=== PATIENT | female | born 1965 | race Caucasian/White ===

== ENCOUNTER 2024-12-19 10:31 | Emergency (ER) | payer BC, SELFPAY ==
[2024-12-19 10:40] VITALS: BP 163/100
--- NOTE | 2024-12-19 13:47 | ED.GENMED ---
History of Present Illness
General
Chief Complaint: Musculo-Skeletal Complaint
Source: patient
Exam Limitations: none
Time Seen by Provider: 12/19/24 12:06
Nursing documentation reviewed up to this point in time: agreed with
History of Present Illness
History of Present Illness:
see MDM
Past History
Past History
ED Past Medical History: CVA (tia) and HTN
ED Past Surgical History: Cholecystectomy
Social History
Tobacco: Non-smoker
Review of Systems
Review of Systems
Allergies reviewed?: Yes
All Other Systems: Not applicable
Phy Exam
Physical Exam
Physical Exam:
GENERAL: Alert , in no apparent distress
CARDIAC: Regular rate and rhythm .
LUNGS: Clear breath sounds bilaterally, no acute respiratory distress, no wheezes/rales/rhonchi
NEUROLOGICAL: Alert and oriented, no focal neuro deficits
SKIN: Warm and dry, skin intact.
MUSCULOSKELETAL media tibial tenderness L knee; no effusion; midline incision well healed; no erythema, no warmth; pain with flexion to 25 degrees; ligaments stable
calf soft and nontender, full ROM ;
PSYCH: Normal and appropriate interaction.
Course
Orders/Labs/Results
Orders:
Orders
12/19/24 10:53
Knee, Left 4 or More Views [CR Knee - Left 4 Or More View*] Urgent
Comment:
Reason For Exam: pain no injury
Vital Signs
Initial and Last Documented VS:
Initial Vital Signs
Temp Pulse Resp BP
36.4 C 75 18 163/100
12/19/24 10:40 12/19/24 10:40 12/19/24 10:40 12/19/24 10:40
Last Documented Vital Signs
Temp Pulse Resp BP Pulse Ox
36.9 C 66 20 158/92 99
12/19/24 14:11 12/19/24 14:13 12/19/24 14:11 12/19/24 14:13 12/19/24 14:13
MDM/Problems Addressed
Differential Diagnosis Includes:
see MDM
MDM/Problems Addressed:
Note:
CHIEF COMPLAINT(S)
Right knee pain.
HISTORY OF PRESENT ILLNESS
The patient is a 59-year-old female with a history of hyperparapthyroidism and prior patellar fractures and surgeries in June 2023 and July 2024, presenting with new-onset right knee pain. The pain began one week ago initially feeling like
she had 'slept wrong.' The pain intensified throughout the day and worsened by nighttime. The patient denies any recent falls. She reports that weight-bearing exacerbates the pain. The patient noted increased heaviness in the affected leg and
difficulty getting comfortable at night. There was a recent physical therapy visit, after which the pain continued, prompting a recommendation for emergency evaluation. The patient underwent an X-ray today, which showed previous fracture sites with
no new fracture identified yet. She has a known history of hyperparathyroidism, which could predispose her to fractures. Pain relief measures have not been requested at this time.
ADDITIONAL HISTORY OBTAINED FROM SOURCES OTHER THAN THE PATIENT
According to radiology, the initial X-ray shows hardware in place without evidence of new fracture.
CHRONIC MEDICAL CONDITIONS SIGNIFICANTLY AFFECTING CARE
Chronic conditions affecting care: hyperparathyroidism.
PHYSICAL EXAM
- Musculoskeletal: Tenderness present in the medial pre-tibial region of the right knee. No fluid effusion noted. Full weight-bearing capacity with discomfort.
no erythema
no significant effusion
no calf swleling or tendneress
- Nursing notes reviewed and vital signs reviewed.
PLAN
Await radiologist confirmation of X-ray. If no acute fracture is identified, proceed with a CT scan to further evaluate for any ligamentous or meniscal injury. Encourage follow-up with end user support specialist. Patient advised to wear a previously used
brace for immobilization.
DIFFERENTIAL DIAGNOSIS
The Differential Diagnosis includes, in no particular order and is not limited to:
- Ligamentous strain
- Meniscal tear
- Osteoarthritis flare
- Bursitis
- Tendonitis
- Chronic pain syndrome
- Recurrent fracture at a pre-existing site
- Soft tissue injury
- Gout
xray indep reviewed; no acute fx; old fx and hardware in place
initially considered CT scan imaging to eval for occult fx but pt is able to weight bear and she has hardware which will make the artifact streaking difficult
MRI would better suit her
but there is no emergency indication for MRI today here; i suggest she use her immobilzier and cane at home that she already has, and f/u with her orthopedist
d/w dr. morocho who agrees
*Pulse Oximetry
Patient hypoxic: no (99)
*Critical Care Note
Total Time (30-74mins, 75-104mins- exclusive of procedures): Not Applicable
ED Attending Note
-
Portions of this chart may have been created with voice recognition software.� Occasional wrong word or��sound alike� substitutions may have occurred due to the inherent limitations of voice recognition software.
Discharge Plan
Departure
Patient Disposition: Home (Routine Discharge)
Date of Disposition: 12/19/24
Time of Disposition: 14:02
Patient with high blood pressure during this ER visit?: Yes
Condition: Fair
Covid-19: Not Applicable
Discharge Problem:
Knee pain
Instructions: Knee pain - ED discharge instructions
Referrals:
Casimiro Bradley MD [Family Provider, Internal Medicine] - Follow up in 2-3 days
Activity Restrictions/Additional Instructions:
CALL YOUR ORTHOPEDIST FOR FOLLOW UP
THE RADIOLOGIST DID NOT SEE ANY FRACTURE IN YOUR KNEE.
TRY WEARING THE KNEE BRACE YOU HAVE AT HOME FOR A FEW DAYS
ICE OFF AND ON
USE A CANE OR CRUTCH TO SEE IF THIS HELPS YOU AVOID FULLY WEIGHT BEARING
RETURN FOR: SEVERE PAIN/SWELLING, REDNESS, INABILITY TO WALK OR ANY CONCERNS.
Interventions
Interventions:
*Risk Screen - Suicide Last Done: 12/19/24 14:11
*General Assessment Last Done: 12/19/24 14:11
*Neglect/Abuse Screening Last Done: 12/19/24 14:11
*ED- Fall Risk Assessment Last Done: 12/19/24 14:11
*ED COVID-19 Vaccine History Last Done: 12/19/24 14:11
*Nursing Disposition Last Done: 12/19/24 14:12
ED-Musculoskeletal Assessment Last Done: 12/19/24 14:11
Discharge Date and Time
Discharge Date/Time: 12/19/24 14:13
Print Language: AUSTRALIAN
[2024-12-19 14:11] VITALS: BP 158/92; BMI 24.5
[2024-12-19 14:13] VITALS: BP 158/92
== END 2024-12-19 14:13 | disposition home or self-care (01) ==
LOC: EMR 10:31
PROVIDERS: EMERGENCY PHYSICIAN Emergency Medicine; FAMILY PHYSICIAN Internal Medicine
DX: M25.561 Pain in right knee (principal); I10 Essential (primary) hypertension; E21.3 Hyperparathyroidism, unspecified; Z86.73 Personal history of transient ischemic attack (TIA), and cerebral infarction without residual deficits; Z90.49 Acquired absence of other specified parts of digestive tract; Z88.2 Allergy status to sulfonamides
CPT/HCPCS: 99283; 73564

== ENCOUNTER → 2024-12-22 08:31 | Outpatient (REF) | payer BC, SELFPAY | LOC: RAD 08:31 | PROVIDERS: ATTENDING PHYSICIAN Nurse Practitioner Family; FAMILY PHYSICIAN Internal Medicine | DX: E83.52 Hypercalcemia (principal); E34.9 Endocrine disorder, unspecified | CPT/HCPCS: 78071; A9500 ==

== ENCOUNTER → 2025-01-02 12:43 | Outpatient (REF) | payer BC, SELFPAY | LOC: HWRAD 12:43 | PROVIDERS: ATTENDING PHYSICIAN Nurse Practitioner Family; FAMILY PHYSICIAN Internal Medicine | DX: E83.52 Hypercalcemia (principal); E34.9 Endocrine disorder, unspecified | CPT/HCPCS: 76536 ==

== ENCOUNTER → 2025-01-15 15:05 | Outpatient (REF) | payer BC, SELFPAY | LOC: RAD 15:05 | PROVIDERS: ATTENDING PHYSICIAN Nurse Practitioner Family; FAMILY PHYSICIAN Internal Medicine | DX: E83.52 Hypercalcemia (principal) | CPT/HCPCS: 77080; 77081 ==

== ENCOUNTER → 2025-01-18 13:52 | Outpatient (REF) | payer BC, SELFPAY ==
[2025-01-18 14:38] LABS: ALT (SGPT) 18 U/L (0-35); AST (SGOT) 19 U/L (14-36); Albumin 4.3 g/dl (3.5-5.0); Alkaline Phosphatase 124 U/L (38-126); Blood Urea Nitrogen 12 mg/dl (7-17); Calcium 11.3 mg/dl (8.4-10.2); Carbon Dioxide 29 mmol/L (22-30); Chloride 104 mmol/L (98-107); Glucose 113 mg/dl (70-99); Magnesium 1.9 mg/dl (1.6-2.3); Potassium 4.4 mmol/L (3.5-5.1); Sodium 137 mmol/L (135-145); Total Protein 6.8 g/dl (6.3-8.2); eGFR > 60.00
[2025-01-18 14:55] LABS: Vitamin D, 25-OH*** 62.3 ng/mL (30-80)
== END ==
LOC: REG 13:52
PROVIDERS: ATTENDING PHYSICIAN Nurse Practitioner Family; FAMILY PHYSICIAN Internal Medicine
DX: E83.52 Hypercalcemia (principal); E34.9 Endocrine disorder, unspecified
CPT/HCPCS: 36415; 80053; 82306; 82330; 83735; 83970; 84100

== ENCOUNTER 2025-02-14 21:57 | Observation (INO) | payer BC, SELFPAY ==
[2025-02-14] VITALS (7 sets, daily range): BP systolic 143–177; BP diastolic 86–99; BMI 28.1; BMI 27.2
--- NOTE | 2025-02-14 17:39 | ED.MUSCINJ ---
HPI-Injury
General
Chief Complaint: Musculo-Skeletal Complaint
Source: patient, spouse and ambulance crew
Exam Limitations: none
Time Seen by Provider: 02/14/25 17:01
Nursing documentation reviewed up to this point in time: agreed with
History of Present Illness-Injury
Initial Injury comments:
Note:
CHIEF COMPLAINT(S)
Bilateral knee pain with the right knee more affected than the left.
HISTORY OF PRESENT ILLNESS
The patient is a 59-year-old female with a history of hyperparathyroidism, preparing for surgery on Wednesday, who presented with increasing knee pain after falling down two steps in her garage. She reports that immediately after the fall, she lay on
the floor for about 20 minutes until her arrived home and assisted her to the couch. She applied ice to both knees with no improvement, noting the pain was 'getting worse and worse.' The right knee appears more swollen than usual, though it
has always been larger since prior surgery.
The patient has a history of previous knee surgeries, including a repair of the patella with two screws placed at [facility], followed by arthroscopy to remove debris. She reports difficulty standing on the right knee and has experienced bowel
incontinence due to her hyperparathyroidism. The patient was unable to take ibuprofen because of her upcoming surgery.
The patient has been in physical therapy since the injury but states she cannot fully straighten the knee due to pain. Despite the application of ice and attempts at self-care, the pain has persisted, necessitating current evaluation.
PAST MEDICAL AND SURIGICAL HISTORY
- Bilateral knee surgeries (repair and arthroscopy with hardware placement in the right knee)
- Upcoming surgery for hyperparathyroidism
- Hyperparathyroidism with associated bowel incontinence
- Osteoporosis secondary to hyperparathyroidism
CHRONIC MEDICAL CONDITIONS SIGNIFICANTLY AFFECTING CARE
- Hyperparathyroidism
- Osteoporosis
REVIEW OF SYSTEMS
- Musculoskeletal: Pain and swelling in both knees, especially the right knee
- Gastrointestinal: Bowel incontinence
PHYSICAL EXAM
General: Alert, no acute distress.
Skin: Warm, dry.
Head: Normocephalic, atraumatic.
Neck: Supple, trachea midline.
Eye, Ears, Nose, Mouth, and Throat: Oral mucosa moist.
Cardiovascular: Normal peripheral perfusion, No edema.
Respiratory: Respirations are non-labored.
Gastrointestinal: Abdomen nondistended.
Back: Normal range of motion, normal alignment.
Musculoskeletal: Reduced range of motion in the right knee, more swollen than the left; patient unable to fully straighten or bear weight on it.
Neurological: Alert and oriented to person, place, time, and situation, No focal neurological deficit observed.
Psychiatric: Cooperative, appropriate mood & affect.
PLAN
- Continue with ice application and limit weight-bearing activities.
- Pain management considering the upcoming surgery, avoid NSAIDs.
- Recommend further imaging of the right knee to evaluate for possible new injuries or complications from prior surgeries.
- Follow up on the scheduled surgery for hyperparathyroidism.
- Consider referral to clinical application specialist if knee condition does not improve.
DIFFERENTIAL DIAGNOSIS
The Differential Diagnosis includes, in no particular order and is not limited to:
1. Knee joint effusion
2. Patellar fracture
3. Osteoarthritis exacerbation
4. Hemarthrosis
5. Ligamentous injury (e.g., ACL or meniscal tear)
6. Bursitis
7. Hardware-related complications (from prior surgery)
8. Tendonitis
9. Synovitis
10. Gout or pseudogout.
CARE-UPDATE
02/14/25 - 19:39
X-rays of bilateral knees and tib-fib reveal no acute fractures, but do show chronic arthritic changes. Despite administration of Percocet, the patient remains unable to ambulate due to persistent bilateral knee pain. Admission required for further
treatment and evaluation.
Disposition:
SUMMARY OF ENCOUNTER
The patient presented to the emergency department with bilateral knee pain, with the right knee being more affected, following a fall. The patient has a history of prior knee surgeries and a condition of hyperparathyroidism, which is being managed
with an upcoming surgery. After examination and imaging, the patient was found to have chronic arthritic changes but no acute fracture, yet persistent bilateral knee pain precluded ambulation even after administration of pain management.
DISPOSITION
Admit to the hospitalist.
ASSESSMENT
The patient is assessed with bilateral knee sprain, hyperparathyroidism, and chronic knee issues consistent with prior surgeries and hyperparathyroidism-related complications.
INDEPENDENT REVIEW OF LABS AND INTERPRETATION OF TESTS
My independent interpretation of the x-rays of bilateral knees reveals no acute fractures but indicates chronic arthritic changes.
MEDICAL DECISION MAKING
- Number and Complexity of Problems Addressed: Chronic conditions affecting care include hyperparathyroidism, prior bilateral knee surgeries, and osteoporosis.
- Complexity of Data Reviewed: Differential diagnosis includes knee joint effusion, patellar fracture, osteoarthritis exacerbation, hemarthrosis, ligamentous injury, bursitis, hardware-related complications, tendonitis, synovitis, gout or pseudogout.
- Data:
Category 1: Reviewed x-rays of bilateral knees and tib-fib, which revealed chronic arthritic changes and no acute fractures.
Category 3: Management was discussed with a hospitalist for further evaluation and admission due to persistent pain and mobility issues.
DIAGNOSIS
- Bilateral knee sprain (ICD-10: S83.112A)
- Hyperparathyroidism (ICD-10: E21.0)
- Chronic knee pain with history of prior surgery due to hypertrophy and secondary complications (ICD-10: M25.569).
Past History
Past History
ED Past Medical History: CVA (tia) and HTN
ED Past Surgical History: Cholecystectomy
Social History
Tobacco: Non-smoker
Phy Exam
Physical Exam
Physical Exam:
.
Injury Course
Orders/Labs/Results
Orders:
Orders
02/14/25 17:36
CR Knee- Right 4 Or More View* Urgent
Comment:
Reason For Exam: right knee pain after fall
Knee, Left 4 or More Views [CR Knee - Left 4 Or More View*] Urgent
Comment:
Reason For Exam: left knee pain after fall
Tib/Fib, Right 2 View [CR Leg Tibia/fibula Right 2 Vw] Urgent
Comment:
Reason For Exam: right leg pain after fall
02/14/25 17:53
Tib/Fib, Left 2 View [CR Leg Tibia/fibula Left 2 Vw] Urgent
Comment:
Reason For Exam: fall
02/14/25 18:36
Oxycodone/Acetaminophen [Percocet 5/325] 1 tablet PO NOW STA
02/14/25 19:34
IV Insert/Care/Rem.- Treatment PRN
Morphine Sulfate 4 mg IV NOW STA
Ondansetron Injectable [Zofran] 4 mg IV NOW STA
02/14/25 19:46
Complete Blood Count/With Diff Urgent
Comprehensive Metabolic Panel Urgent
Abnormal Lab Results
02/14/25
19:46
MPV 11.3 H fL
(7.4-10.4)
Absolute Neuts (auto) 8.2 H 10^3/uL
(1.4-6.5)
Absolute Lymphs (auto) 1.0 L 10^3/uL
(1.2-3.4)
Absolute Monos (auto) 0.8 H 10^3/uL
(0.1-0.6)
Neutrophils % 81.6 H %
(42.2-75.2)
Lymphocytes % 10.2 L %
(20.5-51.1)
Chloride 108 H mmol/L
(98-107)
Calcium 11.4 H mg/dl
(8.4-10.2)
02/14/25 19:46
02/14/25 19:46
*Pulse Oximetry
SaO2: 99
Oxygen Mode of Delivery: Room air
Patient hypoxic: no
*Critical Care Note
Total Time (30-74mins, 75-104mins- exclusive of procedures): Not Applicable
ED Attending Note
-
Portions of this chart may have been created with voice recognition software.� Occasional wrong word or��sound alike� substitutions may have occurred due to the inherent limitations of voice recognition software.
Discharge Plan
Departure
Patient Disposition: Admit
Date of Disposition: 02/14/25
Time of Disposition: 20:23
Presentation/result/management discussed w/ accepting MD/DO: Hospitalist
Patient with high blood pressure during this ER visit?: Yes
Condition: Good
Discharge Problem:
Ambulatory dysfunction, Knee sprain, bilateral, Hypercalcemia, Hyperparathyroidism
Prescriptions:
No Action
ramipril 2.5 mg Capsule
2.5 mg PO DAILY
aspirin 81 mg Tablet
81 mg PO DAILY
rosuvastatin [Crestor] 10 mg Tablet
10 mg PO DAILY
Referrals:
Casimiro Bradley MD [Family Provider, Internal Medicine]
Interventions
Interventions:
*Risk Screen - Suicide Last Done: 02/14/25 17:15
*General Assessment Last Done: 02/14/25 17:15
*Neglect/Abuse Screening Last Done: 02/14/25 17:15
*ED- Fall Risk Assessment Last Done: 02/14/25 17:15
*ED COVID-19 Vaccine History Last Done: 02/14/25 17:15
ED-Musculoskeletal Assessment Last Done: 02/14/25 17:21
Discharge Date and Time
Print Language: ESTONIAN
[2025-02-14] MEDS: PERCOCET 5/325 1 TABLET PO (18:39)
[2025-02-14] MEDS: MORPHINE SULFATE 4 MG IV (19:40)
[2025-02-14] MEDS: ZOFRAN 4 MG IV (19:40)
[2025-02-14 20:03] LABS: Hematocrit 44.7 % (37.0-47.0); Hemoglobin 15.2 g/dL (12.0-16.0); Mean Corp Hgb Conc. 34.0 g/dL (33.0-37.0); Mean Corpuscular Volume 87.0 fL (81.0-99.0); Nucleated Red Blood Cells % 0 %; Platelet Count 170 10^3/uL (130-400); Red Cell Dist. Width 13.8 % (11.5-14.5)
[2025-02-14 20:17] LABS: ALT (SGPT) 20 U/L (0-35); AST (SGOT) 21 U/L (14-36); Albumin 4.6 g/dl (3.5-5.0); Alkaline Phosphatase 121 U/L (38-126); Blood Urea Nitrogen 16 mg/dl (7-17); Calcium 11.4 mg/dl (8.4-10.2); Carbon Dioxide 22 mmol/L (22-30); Chloride 108 mmol/L (98-107); Estimated Creatinine Clearance 88 ml/min; Glucose 93 mg/dl (70-99); Potassium 4.4 mmol/L (3.5-5.1); Sodium 138 mmol/L (135-145); Total Protein 7.4 g/dl (6.3-8.2); eGFR > 60.00
--- NOTE | 2025-02-14 20:28 | W.PN.UPDATE ---
Addendum entered and electronically signed by Elizabeth Masterson MD 02/14/25 22:24:
Discussed CT read with Dr. Melendrez. Most changes in patellar chronic but presence of fluid fluid level or fat fluid level which suggests something more acute. Bone radiologist to review films tomorrow, will also consult Ortho. Patient updated.
Original Note:
Update Note
Progress Note Update
This is an addendum to H&P written by POST ACUTE CARE NURSE PRACTITIONER Damari Villasenor
I saw and examined the patient.
The POST ACUTE CARE NURSE PRACTITIONER's note was reviewed and I agree with the note.
Comment:
Ms. Willie Galloway is a 59 yo woman with hx hyperparathyroidism with plans for upcoming parathyroidectomy on Wednesday, CVA, HTN, hx left knee patellar repair at [facility] (2022) followed by arthroscopy to remove debris (08/21), presents with
increasing knee pain after she fell down two steps in her garage.
Triage VS significant for hypertension.
On exam patient is awake, alert, in no distress. Left knee with incision scar, tender to touch, decreased ROM 2/2 pain; able to flex right knee, tenderness laterally, no LE swelling
LABS: WBC 10.1, Hg 15.2, PLT 170, Na 138, K+ 4.4, Cl 108, CO2 22, BUN 16, Cr 0.7, Glucose 93, T. Bili 0.9, AST 21, ALT 20, Alk Phos 121
Bilateral Knee X-Ray
IMPRESSION:
Likely old healed fracture of the patella with metallic screws.
No findings to confirm recent cortical fracture.
Bilateral Tibia/Fibular Fracture
IMPRESSION:
No acute osseous abnormality.
MAR: IV Morphine, Percocet, Zofran
Bilateral Knee pain post fall
Hx left knee patellar repair followed by arthroscopy 08/22
Ambulatory Dysfunction
-admit to observation
-will obtain CT left knee
-PT/OT
Hypercalcemia (Mild, < 12)
Hyperparathyroidism
-patient is planning for parathyroidectomy Wednesday by Dr. Ortega
-surgery needs to be done as outpatient. Per Dr. Ortega would need to be rescheduled if patient remains hospitalized, patient aware
Essential HTN - COMMUNITY HEALTH NURSE SUPERVISOR Rampiril
HLD - COMMUNITY HEALTH NURSE SUPERVISOR Crestor
Remainder of plan per POST ACUTE CARE NURSE PRACTITIONER note
--- NOTE | 2025-02-14 20:30 | HPS.HSE ---
Family Physician
-
Family Physician: Casimiro Bradley MD
Chief Complaint
-
Fall bilateral knee pain
History of Present Illness
59-year-old female complaining of increased knee pain after falling down 2 steps in her garage she reports she laid on the floor for approximately 20 minutes until her came home helped her to the couch. She has had no relief with ice.
Patient reports tenderness on the lateral collateral ligament she has a slight abrasion to the right anterior knee and lower saravia, she reports chronic pain to the left knee there is no current abrasion. The knee looks arthritic. She has had
previous repair of the patella with 2 screws at [facility] followed by arthroscopy July MRI January 2025 showing DJD, slight meniscus tear by Dr. Jeff. She has history of hyperparathyroidism and is due for parathyroidectomy on Wednesday
01/[address] Ortega. She denies fever, chills, chest pain, palpitations, cough, shortness of breath, abdominal pain, nausea, vomiting, urinary symptoms. She also reports she had recent CVA January 18 treated at [facility] completed 21 days of
Plavix has not been on aspirin for 5 days due to upcoming parathyroid surgery
She has past medical history hyperparathyroidism, osteoporosis, chronic knee pain, CVA January 18, 2025 [facility]
Medical History
Past Medical History
Past Medical History: Reports Other
Additional Past Medical History:
hyperparathyroidism
osteoporosis
chronic knee pain
CVA January 18, 2025 [facility]
Past Surgical History: Reports Other
Additional Past Surgical History:
Left knee patellar fracture with screws
Left knee arthroscopy July 2024
Social History
Tobacco: Non-smoker
Alcohol: None
Drug: None
Personal:
Living: With Family
Family History
Family History: Not pertinent
Allergies / Home Medications
Allergies reflects when Allergies were last updated in [facility].
Home Medications with original date entered in [facility]
Allergy/Medication List:
Allergies
Allergy/AdvReac Type Severity Reaction Status Date / Time
Sulfa (Sulfonamide AdvReac Rash Verified 02/14/25 17:04
Antibiotics)
Home Medications
ramipril 2.5 mg capsule 2.5 mg PO DAILY 02/09/25
rosuvastatin 10 mg tablet (Crestor) 10 mg PO DAILY 02/09/25
Review of Systems
-
History Source: Patient and Family ( at bedside)
A 12 point ROS was completed and negative except as noted: Yes
Constitutional: Denies Fever or Chills
EENT: Denies Sore Throat or Runny Nose
Respiratory: Denies Cough or Trouble Breathing
Cardiac: Denies Chest Pain, Diaphoresis, Palpitations or Syncope
Abdomen/GI: Reports Diarrhea (From hyperparathyroidism); Denies Abdominal Pain, Nausea, Vomiting, Constipated or Bloody Stools
: Denies Dysuria
Musculoskeletal: Reports Joint Pain (Left and right knee); Denies Edema
Skin: Reports Other (Abrasion right patella, right lower extremity); Denies Itching or Rash
Neurological: Denies Dizzy or Headache
Endocrine: Reports No Symptoms
Hematologic/Lymphatic: Reports No Symptoms
Psych: Reports Calm
Physical Exam
Vital Signs
Vital Signs
Temp Pulse Resp BP Pulse Ox
97.7 F 91 18 151/86 100
02/14/25 16:59 02/14/25 18:42 02/14/25 18:42 02/14/25 18:35 02/14/25 18:38
Physical Exam
General: Conversant and Pain; No Fever or Chills
HEENT: NormoCephalic, Anicteric, Moist mucous membranes, [place] Conjunctivae and No Ptosis
Respiratory: Clear; No Wheezes, Rales or Rhonchi
Cardiac: S1/S2 and Regular Rhythm; No Murmur, Rub, Gallop or Peripheral Edema
GI: Soft, Non Tender, Non Distended, Normal Bowel Sounds and No Hepatosplenomegaly
Rectal: Deferred by Provider
Genito-urinary: Deferred by me
Musculoskeletal: No Clubbing, No Cyanosis, No Edema and Other (Tenderness right collateral ligament no laxity, abrasion to patella right lower extremity, tenderness to entire left knee no palpable effusion knee appears arthritic)
Skin: Warm and Dry; No Rash
Neuro: AO x 3, Nonfocal/grossly intact, Cranial Nerves Intact and No Sensory Deficits; No Slurred Speech, Facial Droop, Tremors or Sedated
Psych: Calm
Laboratory Results
-
02/14/25 19:46
02/14/25 19:46
Laboratory Results
Total Bilirubin 0.9 mg/dl (0.2-1.3) 02/14/25 19:46
AST 21 U/L (14-36) 02/14/25 19:46
ALT 20 U/L (0-35) 02/14/25 19:46
Alkaline Phosphatase 121 U/L (38-126) 02/14/25 19:46
Impression/Plan
-
Impression/plan:
Observation MedSurg
# Acute ambulatory dysfunction due to bilateral knee pain
#Mechanical fall with bilateral knee sprain right greater than left
#Chronic knee pain due to old healed fracture of patella with screws Jul 2024,
-Obtain records recent MRI January [facility] by Dr. Jeff told meniscus slight tear and DJD
-Tylenol 1 g 3 times daily
-Bengay topical
- Consult PT/OT
- Check CT left knee
X-ray right knee: Old healed fracture of the patella with metallic screws degenerative changes, small left suprapatellar effusion
Fibula/tibia x-ray: No acute osseous abnormality
#Hyperparathyroidism with reported symptoms diarrhea
#Hypercalcemia
Calcium 11.4 is for parathyroidectomy Friday 02/[address] Ortega
- Dr. Ortega made aware patient is admitted patient would like to have her surgery Wednesday as outpatient if able to ambulate
- Will give Imodium per patient request
#Reported CVA January 18 [facility]
Patient reports finished Plavix 21 days
Has not had aspirin in 5 days due to upcoming surgery on 02/16/2025-
#Osteoporosis hx
DVT prophylaxis
SCDs
Full code
[2025-02-14] MEDS: NSS (PRESERVATIVE FREE) 8 ML IV (21:25)
[2025-02-14] MEDS: PEPCID 20 MG IV (21:25)
[2025-02-14] MEDS: IMODIUM 2 MG PO (21:25)
[2025-02-14] MEDS: TYLENOL 1000 MG PO (22:56)
[2025-02-14] MEDS: ULTRAM 25 MG PO (23:32)
--- NOTE | 2025-02-15 01:09 | PTCARENOTE ---
Rec'd pt form ED, oriented to room and unit. Pt with discomfort to b/l knees, scheduled tylenol and one time ultram ordered and provided with positive effect. Pt call maynard is within reach, pt instructed to ring for assistance. verbalized
understanding. pt came up from the ED with a purewick in place. Pt educated on benefit of toileting and not utilizing the purewick, pt refused to dc purewick despite education. will cont to monitor.
[2025-02-15] MEDS: DILAUDID 0.25 MG IV ×5 (02:23→16:08)
[2025-02-15 07:25] VITALS: BP 161/95
--- NOTE | 2025-02-15 08:21 | W.PN.HOSP.TC ---
Today's Communication/Plan
-
see A/P
Assessment / Plan
Assessment / Plan
HPI: 59 yo woman with PMH hyperparathyroidism with plan for upcoming parathyroidectomy on Wednesday, CVA, HTN, hx left knee patellar repair at [facility] (2022) followed by arthroscopy to remove debris (08/21), presented with increasing knee pain after
she fell down two steps in her garage.
Bilateral Knee X-Ray
Likely old healed fracture of the patella with metallic screws.
No findings to confirm recent cortical fracture.
Bilateral Tibia/Fibular Fracture
No acute osseous abnormality.
A/P:
# Bilateral Knee pain post fall
# Hx left knee patellar repair followed by arthroscopy 08/22
# Ambulatory Dysfunction
Follow CT left knee report , d/w radiologist, there is also a subtle non-displaced L lateral tibial fracture
Pt states that her will bring in her old knee immobilizer
PT/OT eval
Ortho consulted
# Hypercalcemia (Mild, < 12), 2/2 Hyperparathyroidism
patient is planning for parathyroidectomy Wednesday by Dr. Ortega
surgery needs to be done as outpatient. Per Dr. Ortega would need to be rescheduled if patient remains hospitalized, patient aware
# Essential HTN - [employer] Rampiril
# HLD - [employer] Crestor
DVT prophylaxis: SCDs
Full code
DW RN
total time spent 51 min
Anticipated Discharge: 24 - 48 hours
Subjective/Interval History
-
Date of Service: February 15, 2025
Objective Data
-
Vital Signs:
Vital Signs
Temp Pulse Resp BP Pulse Ox
36.7 C 70 20 157/97 98
02/14/25 22:45 02/14/25 23:25 02/14/25 22:45 02/14/25 23:25 02/14/25 23:45
I&O
08/02/15/25 02/16/25
06:59 06:59 06:59
Output Total 100 / 100
Balance -100 / -100
Review of Systems
-
History Source: Patient
Musculoskeletal: Reports Joint Pain (BL Knee pain)
Physical Exam
-
General: Well Developed, Well Nourished, No Apparent Distress, Comfortable and Conversant; Negative Respiratory Distress
HEENT: Normocephalic, Atraumatic, Nose Appears Normal and Ears Appear Normal; Negative Oxygen
Respiratory: Clear to Auscultation and Non Labored Respirations; Negative Accessory Resp Muscle Use
Cardiac: Regular Rhythm and S1/S2
GI: Soft, Nontender, Nondistended and Normal Bowel Sounds
Musculoskeletal: Other (BL Knee tenderness, no significant fluid swelling )
Skin: Warm and Dry
Neuro: Awake, Alert, Oriented and AO x 3
Psych: Calm and Intact Judgement/Insight
Data Reviewed
-
CT Scan: Discussed with Physician
Labs: Labs Reviewed by me
[2025-02-15] MEDS: IMODIUM 2 MG PO (08:54)
[2025-02-15] MEDS: TYLENOL 1000 MG PO ×2 (08:55→16:08)
[2025-02-15] MEDS: CRESTOR 10 MG PO (08:56)
[2025-02-15] MEDS: ALTACE 2.5 MG PO (08:56)
[2025-02-15] MEDS: NSS 500 IV (13:17)
[2025-02-15] MEDS: TORADOL 15 MG IV ×2 (14:23→20:30)
[2025-02-15] MEDS: PROTONIX IV 40 MG IV (14:25)
[2025-02-15] MEDS: NSS (PRESERVATIVE FREE) 10 ML IV (14:25)
[2025-02-15 15:20] VITALS: BP 147/90
--- NOTE | 2025-02-15 16:02 | CM ---
Met with patient to obtain information for assessment. Patient's spouse was at bedside. Patient lives with her spouse in a two story home with three steps to enter. She described herself as in need of assistance with bathing, dressing, toileting
most ADLs and self care. Her spouse and son assist with the shopping, welfare director, laundry and cleaning. She denied any DME. She has not had VN in the past or been to a SNF. Patient did no outpatient rehab.
Patient has a prescription plan and uses, [facility] in [place] for all of her medications.
Patient's PCP is, Fide Bradley.
Patient stated that she feels she may need some rehab prior to discharge.
OBS for reviewed and placed on chart.
Plan: Case management will continue to follow and assist with discharge planning. Possible rehab prior to returning home.
--- NOTE | 2025-02-15 18:57 | CON.ORTHO ---
Consultation
-
Date/Time Consultation Performed: 02/15/2025 615 PM
Consultation - Orthopedics
History
59-year-old female presented to the emergency department after mechanical fall complains of left knee pain inability to bear weight. CT scan was concerning for fracture. She was admitted to the hospital service. Orthopedics was consulted for
further evaluation and treatment. Patient reports that she has a history of a patella fracture treated with open reduction internal fixation cannulated screws. She subsequently underwent arthroscopic treatment with Dr. Jeff at [facility]
[place] for what sounds like arthrofibrosis postop. She reports that she has been dealing with pain ever since her surgery. She reports that she actually had quite substantial pain about 6 weeks ago that began atraumatically. She recently
saw Dr. Jeff just a couple weeks ago and she was continue with physical therapy. Today patient reports fairly diffuse pain throughout the left knee and lower leg. She reports inability to bear weight. Patient also reportedly had a CVA this
summer.
Allergies / Home Medications
Past medical history: Hyperparathyroidism, osteoporosis, left patella fracture, CVA
Past surgical history: Open reduction term fixation left patella fracture, left knee arthroscopy
Social history: Non-smoker, lives with family
Family history: Not pertinent
Allergy/AdvReac Type Severity Reaction Status Date / Time
Sulfa (Sulfonamide Allergy Rash Verified 02/14/25 22:35
Antibiotics)
�Medication �Instructions �Recorded
ramipril 2.5 mg capsule 2.5 mg PO DAILY 02/09/25
rosuvastatin 10 mg tablet (Crestor) 10 mg PO DAILY 02/09/25
Vital Signs / Lab Results
Temp Pulse Resp BP Pulse Ox
97.5 F 64 16 147/90 100
02/15/25 15:20 02/15/25 15:20 02/15/25 15:20 02/15/25 15:20 02/15/25 15:20
02/14/25 19:46
02/14/25 19:46
10 point review systems reviewed and negative unless otherwise stated
General: Pleasant, no acute distress, mildly confused
Musculoskeletal left lower extremity
Skin intact, no erythema or ecchymotic staining
Well-healed surgical incisions
Mild palpable knee effusion
Patient is really not able to tolerate any clinical examination regarding stability of her left knee secondary to pain
She is able to weakly straight leg raise
She is fairly diffusely tender about the soft tissues around the knee. She actually has more tenderness palpation on examination medial joint line relative to the lateral joint line
Positive EHL, FHL, ankle dorsiflexion, plantarflexion
No other areas of palpable crepitus long bones or joints on tertiary exam
Diagnostic studies
CT scan left knee independently viewed by myself. Radiology report was reviewed. There is evidence of quite significant degenerative changes patellofemoral compartment with 2 cannulated screws transfixing old healed patella fracture. Radiologist
notes subtle nondisplaced fracture posterior lateral tibial plateau seen on coronal image 36 and sagittal image 49. There is no depression or displacement.
Assessment / Plan
59-year-old female history of patella fracture left knee status post open duction term fixation and subsequent lysis of adhesions with arthroscopic surgery now status post fall with no new obvious patella fracture although there is concern for
nondisplaced posterior lateral tibial plateau fracture. I do long detailed discussion with the patient regarding diagnosis and treatment options. Would not recommend any acute orthopedic intervention. She does have a hinged knee brace that she
brought from home. Would recommend keeping this locked in complete extension. Patient may be toe-touch weightbearing to the left lower extremity. She does have some chronic pain issues and has dealt with range of motion issues since her initial
surgery. She is currently being followed and treated by Dr. Jeff at [facility] whom she has seen in the last couple of weeks. She like to follow-up with them I think this is certainly reasonable.
Toe-touch weightbearing left lower extremity in hinged knee brace locked in extension
PT OT
Pain control
Medical management per primary team
Outpatient follow-up 2 weeks with for outside orthopedic surgeon
Please reach out any questions or concerns
No acute orthopedic intervention planned
[2025-02-15] MEDS: ZOFRAN 4 MG IV (19:29)
[2025-02-15] MEDS: TYLENOL PO (22:14)
[2025-02-15 23:38] VITALS: BP 155/87
[2025-02-16] MEDS: TORADOL 15 MG IV ×2 (04:24→10:19)
--- NOTE | 2025-02-16 05:49 | PTCARENOTE ---
Report given to ATUL Pat on and pt. transferred to room 414-2. All belongings with pt. at bedside.
[2025-02-16 06:00] VITALS: BP 161/92
[2025-02-16 07:00] VITALS: BP 165/90
[2025-02-16] MEDS: CRESTOR 10 MG PO (08:18)
[2025-02-16] MEDS: TYLENOL 1000 MG PO ×2 (08:18→14:14)
[2025-02-16] MEDS: NSS (PRESERVATIVE FREE) IV ×2 (08:19→10:20)
[2025-02-16] MEDS: PROTONIX IV IV ×2 (08:19→10:20)
[2025-02-16 08:37] LABS: Hematocrit 42.6 % (37.0-47.0); Hemoglobin 13.8 g/dL (12.0-16.0); Mean Corp Hgb Conc. 32.4 g/dL (33.0-37.0); Mean Corpuscular Volume 89.3 fL (81.0-99.0); Platelet Count 155 10^3/uL (130-400); Red Cell Dist. Width 13.7 % (11.5-14.5)
[2025-02-16 09:37] LABS: Blood Urea Nitrogen 15 mg/dl (7-17); Calcium 11.3 mg/dl (8.4-10.2); Carbon Dioxide 27 mmol/L (22-30); Chloride 105 mmol/L (98-107); Estimated Creatinine Clearance 67 ml/min; Glucose 102 mg/dl (70-99); Magnesium 2.0 mg/dl (1.6-2.3); Potassium 4.3 mmol/L (3.5-5.1); Sodium 137 mmol/L (135-145); eGFR > 60.00
[2025-02-16] MEDS: ALTACE 2.5 MG PO (10:18)
--- NOTE | 2025-02-16 10:35 | W.PN.HOSP.TC ---
Today's Communication/Plan
-
see A/P
Assessment / Plan
Assessment / Plan
HPI: 59 yo woman with PMH hyperparathyroidism with plan for upcoming parathyroidectomy on Wednesday, CVA, HTN, hx left knee patellar repair at [facility] (2022) followed by arthroscopy to remove debris (08/21), presented with increasing knee pain after
she fell down two steps in her garage.
Bilateral Knee X-Ray
Likely old healed fracture of the patella with metallic screws.
No findings to confirm recent cortical fracture.
Bilateral Tibia/Fibular Fracture
No acute osseous abnormality.
A/P:
# Bilateral Knee pain post fall
# Hx left knee patellar repair followed by arthroscopy 08/22
# Ambulatory Dysfunction
CT left knee report noted suspicious subtle nondisplaced fracture of the lateral tibial plateau with accompanying lipohemarthrosis.
Cont knee immobilization with immobilizer
PT/OT eval
Appreciate Ortho input
# Hypercalcemia (Mild, < 12), 2/2 Hyperparathyroidism
patient is planning for parathyroidectomy Wednesday by Dr. Ortega
surgery needs to be done as outpatient. Per Dr. Ortega would need to be rescheduled if patient remains hospitalized, patient aware
# Essential HTN - [employer] Rampiril
# HLD - [employer] Crestor
DVT prophylaxis: SCDs
Full code
DW at bedside
Anticipated Discharge: Within 24 hours
Subjective/Interval History
-
Date of Service: February 16, 2025
Objective Data
-
Labs:
Laboratory Results
02/16/25
08:08
WBC 6.1
Hgb 13.8
Hct 42.6
Plt Count 155
Sodium 137
Potassium 4.3
Chloride 105
Carbon Dioxide 27
BUN 15
Creatinine 0.8
Glucose 102 H
Calcium 11.3 H
Vital Signs:
Vital Signs
Temp Pulse Resp BP Pulse Ox
36.7 C 66 18 165/90 98
02/16/25 07:00 02/16/25 07:00 02/16/25 07:00 02/16/25 07:00 02/16/25 07:00
I&O
02/15/25 02/16/25 02/17/25
06:59 06:59 06:59
Intake Total 480 / 480
Output Total 100 / 100 50 / 50 600 / 600
Balance -100 / -100 430 / 430 -600 / -600
Review of Systems
-
History Source: Patient
Musculoskeletal: Reports Joint Pain (BL Knee pain has improved )
Physical Exam
-
General: Well Developed, Well Nourished, No Apparent Distress, Comfortable and Conversant; Negative Respiratory Distress
HEENT: Normocephalic, Atraumatic, Nose Appears Normal and Ears Appear Normal; Negative Oxygen
Respiratory: Clear to Auscultation and Non Labored Respirations; Negative Accessory Resp Muscle Use
Cardiac: Regular Rhythm and S1/S2
GI: Soft, Nontender, Nondistended and Normal Bowel Sounds
Musculoskeletal: Other (BL Knee tenderness has improved , no significant fluid swelling)
Skin: Warm and Dry
Neuro: Awake, Alert, Oriented and AO x 3
Psych: Calm and Intact Judgement/Insight
Data Reviewed
-
CT Scan: Discussed with Physician and Discussed with Family
Labs: Labs Reviewed by me
[2025-02-16 12:32] VITALS: BP 178/100; PULSE 77; O2SAT 98
[2025-02-16 12:34] VITALS: BP 178/100; PULSE 84; O2SAT 98
--- NOTE | 2025-02-16 14:32 | W.DCSUMMARY ---
Discharge Summary
Discharge Data
Date of Admission: 02/14/25
Date of Discharge: 02/16/25
Total time spent discharging patient (in min): 40
-
Pending Results: No
Hospital Course
Principal Diagnosis:
Bilateral knee pain post fall
Subtle nondisplaced fracture of the left knee lateral tibial plateau
Chronic Diagnoses:�
History of left knee patellar repair followed by arthroscopy 08/22
Hypercalcemia (Mild, < 12), 2/2 Hyperparathyroidism. Patient is planning for parathyroidectomy Wednesday by Dr. Ortega
Essential hypertension, on low-dose ramipril prior to admission
Hyperlipidemia, on Crestor
Consultations:�
Orthopedic
Procedures:�
None
Clinical course:�
This is a 59-year-old female with past medical history as stated above, who presented with mechanical fall in her garage.
She complained of bilateral knee pain on admission.
Problem 1:
Bilateral knee pain post fall.
This was associated with subtle nondisplaced fracture of the left knee lateral tibial plateau.
She should remain toe-touch weightbearing of her left lower extremity in hinged knee brace locked in extension per ortho.
She was cleared by PT OT to return home with outpatient therapy.
As for the rest of her medical problems, they were stable during her hospital stay.
Discharge Plan
-
Patient Disposition: Home with Home Care
Discharge Diagnosis/Procedures: Fall with suspicious subtle L knee nondisplaced fracture of the lateral tibial plateau;
Condition: Good
Diet: As tolerated
Activity: As tolerated
Additional Activity: Toe-touch weightbearing left lower extremity in hinged knee brace locked in extension
Driving Restrictions: Not until seen by your Dr
Referrals:
Casimiro Bradley MD [Family Provider, Internal Medicine] - in less than 1 week
Additional Discharge Medication Instructions: pain control with Naproxen and Tylenol as needed.
take protonix while on Naproxen for gastric protection.
Prescriptions:
New
naproxen 250 mg tablet
250 mg PO TID PRN (Reason: Pain) Qty: 20 0RF
pantoprazole [Protonix] 40 mg tablet,delayed release (DR/EC)
40 mg PO DAILY Qty: 30 0RF
(DME) outpatient PT OT
See Rx Instructions .Route .MEDSUPPLY Qty: 1 0RF
Rx Instructions:
Outpatient PT OT
# ambulatory dysfunction
Continued
ramipril 2.5 mg Capsule
2.5 mg PO DAILY
rosuvastatin [Crestor] 10 mg Tablet
10 mg PO DAILY
Discharge Orders:
Discharge Patient (As Directed); Ordered 02/16/25
Ordered By: Katiuska Bateman
Discharge Date and Time
Print Language: JAMA[place]
--- NOTE | 2025-02-16 14:57 | CM ---
Chart reviewed. Patient is for d/c today
Therapy rec home PT vs needs. Discussed w/ patient, she stated is current w/ OP PT and goes to [place] physical therapy. Would like to resume once she goes home. Stated she will need a script
TT hospitalist for script
Plan: Home, resume OP PT
[2025-02-16 15:12] VITALS: BP 156/88
== END 2025-02-16 16:04 | disposition home or self-care (01) ==
LOC: 4 WEST ACU 21:57
PROVIDERS: ADMITTING PHYSICIAN Student in an Organized Health Care Education/Training Program; ATTENDING PHYSICIAN Internal Medicine; CONSULT PHYSICIAN Orthopaedic Surgery; EMERGENCY PHYSICIAN Emergency Medicine; FAMILY PHYSICIAN Internal Medicine
DX: S83.92XA Sprain of unspecified site of left knee, initial encounter (principal); S83.91XA Sprain of unspecified site of right knee, initial encounter; S82.145A Nondisplaced bicondylar fracture of left tibia, initial encounter for closed fracture; M17.0 Bilateral primary osteoarthritis of knee; E21.3 Hyperparathyroidism, unspecified; M81.0 Age-related osteoporosis without current pathological fracture; E78.5 Hyperlipidemia, unspecified; R15.9 Full incontinence of feces; I10 Essential (primary) hypertension; G89.29 Other chronic pain; W10.8XXA Fall (on) (from) other stairs and steps, initial encounter; Y93.01 Activity, walking, marching and hiking; Y92.015 Private garage of single-family (private) house as the place of occurrence of the external cause; Z87.81 Personal history of (healed) traumatic fracture; Z88.2 Allergy status to sulfonamides; Z90.49 Acquired absence of other specified parts of digestive tract; Z86.73 Personal history of transient ischemic attack (TIA), and cerebral infarction without residual deficits
CPT/HCPCS: 73564; 73590; 73700; 80048; 80053; 83735; 85025; 85027; 96374; 96375; 97163; 97167; 99285; G0378

== ENCOUNTER 2025-04-17 06:08 | Day surgery (SDC) | payer BC, SELFPAY ==
[2025-04-10 09:10] LABS: Hematocrit 48.3 % (37.0-47.0); Hemoglobin 15.7 g/dL (12.0-16.0); Mean Corp Hgb Conc. 32.5 g/dL (33.0-37.0); Mean Corpuscular Volume 91.1 fL (81.0-99.0); Platelet Count 204 10^3/uL (130-400); Red Cell Dist. Width 13.4 % (11.5-14.5)
[2025-04-10 09:17] LABS: INR 0.96; PT 13.1 Sec (11.4-14.6)
[2025-04-10 09:18] LABS: APTT 29.3 Sec (23.4-35.0)
[2025-04-10 09:32] LABS: ALT (SGPT) 15 U/L (0-35); AST (SGOT) 15 U/L (14-36); Albumin 4.5 g/dl (3.5-5.0); Alkaline Phosphatase 130 U/L (38-126); Blood Urea Nitrogen 14 mg/dl (7-17); Calcium 10.9 mg/dl (8.4-10.2); Carbon Dioxide 28 mmol/L (22-30); Chloride 107 mmol/L (98-107); Glucose 92 mg/dl (70-99); Potassium 4.3 mmol/L (3.5-5.1); Sodium 142 mmol/L (135-145); Total Protein 7.2 g/dl (6.3-8.2); eGFR > 60.00
[2025-04-10 14:04] VITALS: BMI 25.2
[2025-04-17] VITALS (10 sets, daily range): BP systolic 143–187; BP diastolic 76–107; BMI 25.2
[2025-04-17] MEDS: NEURONTIN 300 MG PO (06:37)
[2025-04-17] MEDS: TYLENOL 1000 MG PO (06:37)
[2025-04-17] MEDS: NORMOSOL-R/PLASMALYTE-A 1000 IV (06:38)
[2025-04-17] MEDS: HEPARIN 5000 UNITS SC (06:38)
[2025-04-17 08:26] LABS: Turbo PTH 229.7 pg/ml (14.5-75.2)
[2025-04-17 09:24] LABS: Turbo PTH 30.5 pg/ml (14.5-75.2)
--- NOTE | 2025-04-17 09:38 | OR.RPT ---
Operative Report
Operative Report
Date of Operation: April 17, 2025
Preoperative Diagnosis: Parathyroid hyperparathyroidism - E210
Postoperative Diagnosis: Same
Surgeon: Titus Ortega M.D.
Operation: Neck exploration, Left and Right Superior Parathyroidectomy - [id number]
Anesthesia: GET
Estimated Blood Loss: 5 cc
Drains: None
Specimen: Left and Right Upper Neck Nodules, rule out parathyroid adenoma
Complications: None
Procedure:
The patient was taken to the operating room and placed in the usual supine position. After adequate general endotracheal anesthesia was established, the patient's neck was extended, prepped, and draped in the typical sterile fashion. A 4 cm
transcervical incision was made two fingerbreadths above the sternal notch. The skin incision was made with the #15 blade, and this was taken through the skin into the subcutaneous tissue. The underlying platysma muscle was divided, and subplatysmal
flaps were created superiorly to the thyroid cartilage and inferiorly to the sternal notch. Strap muscles were identified and at the midline.
Attention was turned to the patient's right side of the neck. The right thyroid lobe was mobilized medially. During this process, the right recurrent laryngeal nerve was identified and preserved throughout the surgery. The right upper neck nodule
was identified and noted to be enlarged, excised, and sent to the pathology department, which showed a hypercellular parathyroid gland.
Next, attention was turned to the left side of the neck. The left thyroid lobe was mobilized medially. During this process, the left recurrent laryngeal nerve was identified and preserved throughout the surgery. The left upper neck nodule was
identified and noted to be enlarged, excised, and sent to the pathology department, which showed a hypercellular parathyroid gland. The intraoperative PTH levels normalized.
After obtaining adequate hemostasis, the strap muscles were reapproximated with #3-0 Vicryl in a running fashion. The platysma muscle was reapproximated with #3-0 Vicryl in an interrupted fashion, and the skin was approximated with #4-0 Monocryl in
a running subcuticular fashion. The Steri-Strips and sterile dressings were placed. The patient tolerated the procedure well. The final instrument, needle, and sponge counts were correct. The patient was extubated and transferred to the PACU.
[2025-04-17] MEDS: DILAUDID 0.25 MG IV (10:11)
== END 2025-04-17 11:22 | disposition home or self-care (01) ==
LOC: SDS 06:08
PROVIDERS: ATTENDING PHYSICIAN Surgery; FAMILY PHYSICIAN Internal Medicine
DX: D35.1 Benign neoplasm of parathyroid gland (principal); E21.3 Hyperparathyroidism, unspecified
CPT/HCPCS: 60500; 80053; 83970; 85027; 85610; 85730; 88305; 88331; 93005